=== PATIENT | male | born 2000 | race Caucasian/White ===

== ENCOUNTER 2023-03-05 22:00 | Emergency (ER) | payer SELFPAY | END 2023-03-05 23:25 | disposition home or self-care (01) | LOC: CSHERS 22:00 | DX: S61.215A Laceration without foreign body of left ring finger without damage to nail, initial encounter (principal); W26.8XXA Contact with other sharp object(s), not elsewhere classified, initial encounter; Y92.010 Kitchen of single-family (private) house as the place of occurrence of the external cause | CPT/HCPCS: 12001 ==

== ENCOUNTER 2023-03-13 20:16 | Emergency (ER) | payer SELFPAY | END 2023-03-13 21:25 | disposition home or self-care (01) | LOC: CSHERS 20:16 | DX: S61.215D Laceration without foreign body of left ring finger without damage to nail, subsequent encounter (principal); F17.290 Nicotine dependence, other tobacco product, uncomplicated; X58.XXXD Exposure to other specified factors, subsequent encounter ==

== ENCOUNTER 2024-03-29 20:33 | Emergency (ER) | payer OTHER, SELFPAY ==
[2024-03-29] MEDS ORDERED: Bacitracin 1 PK ONE (20:44)
[2024-03-29] MEDS ORDERED: Boostrix 0.5 ML (Tdap) VIAL (>/=7 yrs of age) ONE (20:45)
== END 2024-03-29 21:35 | disposition home or self-care (01) ==
LOC: CSHERS 20:33
DX: S61.451A Open bite of right hand, initial encounter (principal); F17.290 Nicotine dependence, other tobacco product, uncomplicated; W54.0XXA Bitten by dog, initial encounter
CPT/HCPCS: 90715; 99283